=== PATIENT | male | born 1980 | race Hispanic/Latino ===

== ENCOUNTER 2018-01-10 18:22 | Inpatient (IN) | payer OTHER ==
[~2018-01-10] VITALS: Ht 175.3 cm; Wt 88.5 kg
[2018-01-10 20:22] LABS: BASOPHILS % (AUTO) 0.7 % (0.0-5.0); EOSINOPHILS % (AUTO) 2.9 % (0.0-8.0); HEMATOCRIT 30.8 % (42-54); LYMPHOCYTES % (AUTO) 19.6 % (21.0-51.0); MEAN CORPUSCULAR HEMOGLOBIN 21.3 pg (27.0-33.0); MEAN CORPUSCULAR HGB CONC 32.7 g/dL (32.0-36.0); MEAN CORPUSCULAR VOLUME 65.2 fL (79-99); MONOCYTES % (AUTO) 7.9 % (3.0-13.0); NEUTROPHILS % (AUTO) 68.9 % (40.0-77.0); NUCLEATED RED BLOOD CELLS 0.1 % (0.0-0.19); PLATELET COUNT (AUTO) 395 K/uL (130-400); RED BLOOD CELL COUNT(AUTO) 4.73 MIL/uL (4.50-6.20); RED CELL DISTRIBUTION WIDTH 15.9 % (11.0-15.5)
[2018-01-10] MEDS ORDERED: KETOROLAC TROMETHAMINE 30MG/ML ONE (20:25)
[2018-01-10 20:32] LABS: POTASSIUM 3.7 mmol/L (3.5-5.1)
[2018-01-10 20:36] LABS: ALBUMIN 2.7 g/dL (3.5-5.0); BILIRUBIN,TOTAL 0.2 mg/dL (0.2-1.0); TOTAL PROTEIN, SERUM 8.1 g/dL (6.0-8.3)
[2018-01-10] MEDS ORDERED: ONDANSETRON HCL MDV 20ML 2 MG/ML VIAL IVP PRN (22:00)
[2018-01-10] MEDS ORDERED: MEROPENEM 500MG+NS 50ML 50 ML IV SCH (22:00)
[2018-01-10] MEDS: VANCOMYCIN 1GM+NS 250ML 250 ML IV SCH (22:00)
[2018-01-10] MEDS: FAMOTIDINE 20MG TAB 20 MG TAB PO SCH (22:00)
[2018-01-10] MEDS ORDERED: ACETAMINOPHEN 325 MG TAB PO PRN (22:00)
[2018-01-10] MEDS ORDERED: MORPHINE SULFATE 2 MG/ML 1ML SYG IM PRN (22:00)
[2018-01-11] MEDS ORDERED: ENOXAPARIN SODIUM 40 MG/0.4 ML SYRINGE SQ ONE (03:14)
[2018-01-11 07:00] LABS: BASOPHILS % (AUTO) 0.8 % (0.0-5.0); EOSINOPHILS % (AUTO) 3.2 % (0.0-8.0); HEMATOCRIT 29.7 % (42-54); MEAN CORPUSCULAR HEMOGLOBIN 20.7 pg (27.0-33.0); MEAN CORPUSCULAR HGB CONC 32.2 g/dL (32.0-36.0); MEAN CORPUSCULAR VOLUME 64.3 fL (79-99); MONOCYTES % (AUTO) 7.4 % (3.0-13.0); NEUTROPHILS % (AUTO) 70.6 % (40.0-77.0); PLATELET COUNT (AUTO) 430 K/uL (130-400); RED BLOOD CELL COUNT(AUTO) 4.61 MIL/uL (4.50-6.20); RED CELL DISTRIBUTION WIDTH 16.1 % (11.0-15.5)
[2018-01-11 07:11] LABS: CREATININE 1.1 mg/dL (0.5-1.5)
[2018-01-11 07:18] LABS: ALBUMIN 2.6 g/dL (3.5-5.0); BILIRUBIN,TOTAL 0.3 mg/dL (0.2-1.0); TOTAL PROTEIN, SERUM 7.8 g/dL (6.0-8.3)
[2018-01-11 07:45] LABS: HEMOGLOBIN A1C 5.7 % (4.0-6.0)
[2018-01-11 08:11] LABS: ERYTHROCYTE SEDIMENTATION RATE 38 MM/HR (0-15)
[2018-01-11] MEDS ORDERED: BUPR300T53 PO (09:17)
[2018-01-11 09:48] VITALS: BP 105/64
[2018-01-11 11:00] VITALS: BP 97/62
[2018-01-11] MEDS: MULTIVITAMIN TABLET PO SCH (12:09)
[2018-01-11] MEDS: ENOXAPARIN SODIUM 40 MG/0.4 ML SYRINGE SQ SCH (12:12)
[2018-01-11] MEDS: MEROPENEM 500 MG VIAL IVP SCH ×2 (14:00→22:00)
[2018-01-11] MEDS: HONEY 1 APPL/ML TUBE TP SCH (14:30)
[2018-01-11 16:00] VITALS: BP 99/60
[2018-01-11 20:16] VITALS: BP 113/68
[2018-01-11] MEDS: LEVOFLOXACIN 750 MG TABLET PO SCH (20:29)
[2018-01-11] MEDS: CLINDAMYCIN HCL 150 MG CAP PO SCH (20:29)
[2018-01-11] MEDS: VANCOMYCIN 1GM+NS 250ML 250 ML IV SCH (22:00)
[2018-01-11] MEDS: FAMOTIDINE 20MG TAB 20 MG TAB PO SCH (22:21)
[2018-01-11 23:46] VITALS: BP 121/70
[2018-01-12 03:00] VITALS: BP 105/64
[2018-01-12] MEDS: CLINDAMYCIN HCL 150 MG CAP PO SCH ×2 (03:02→10:03)
[2018-01-12 05:51] LABS: INR 1.08 (0.85-1.15); PARTIAL THROMBOPLASTIN TIME 29.7 SEC (26.3-35.5); PROTHROMBIN TIME 11.1 SEC (9.6-11.6)
[2018-01-12 05:55] LABS: CREATININE 1.1 mg/dL (0.5-1.5); POTASSIUM 4.1 mmol/L (3.5-5.1)
[2018-01-12] MEDS: MEROPENEM 500 MG VIAL IVP SCH ×2 (06:00→13:56)
[2018-01-12 06:02] LABS: % IRON SATURATION 7.7 % (30-44)
[2018-01-12] MEDS: HONEY 1 APPL/ML TUBE TP SCH (09:00)
[2018-01-12 09:06] VITALS: BP 101/59
[2018-01-12] MEDS: MULTIVITAMIN TABLET PO SCH (10:03)
[2018-01-12] MEDS: LEVOFLOXACIN 750 MG TABLET PO SCH (10:03)
[2018-01-12] MEDS: ENOXAPARIN SODIUM 40 MG/0.4 ML SYRINGE SQ SCH (10:04)
[2018-01-12] MEDS ORDERED: HONEY 1 APPL/ML TUBE TP SCH (12:49)
[2018-01-12] MEDS ORDERED: FERROUS SULFATE 300 MG/5 ML LIQ UDCUP PO SCH (13:00)
== END 2018-01-12 15:39 | disposition left against medical advice (07) | DRG 593 ==
LOC: EDH 18:22 → EDHIP 21:11 → 4BH 01-11 08:25
PROVIDERS: ADMIT Family Medicine; ATTEND Family Medicine
DX: L97.919 Non-pressure chronic ulcer of unspecified part of right lower leg with unspecified severity (principal); L03.90 Cellulitis, unspecified; D50.9 Iron deficiency anemia, unspecified; L97.929 Non-pressure chronic ulcer of unspecified part of left lower leg with unspecified severity; D63.8 Anemia in other chronic diseases classified elsewhere; F31.9 Bipolar disorder, unspecified; F41.9 Anxiety disorder, unspecified; Z72.0 Tobacco use; Z83.3 Family history of diabetes mellitus
CPT/HCPCS: 36415; 80048; 80053; 83036; 83540; 83550; 84134; 85025; 85610; 85651; 85730; 87040; 87070; 87076; 87077; 87186; 93925; 93970; A4218; J1650; J1885; J2185

== ENCOUNTER 2018-01-12 23:53 | Inpatient (IN) | payer OTHER ==
[~2018-01-12] VITALS: Ht 175.3 cm; Wt 82.1 kg
[~2018-01-12 23:53] MED LIST: BUPR300T53 PO
[2018-01-13 00:25] LABS: APPEARANCE,URINE Clear (CLEAR); BILIRUBIN,URINE Negative (NEGATIVE); COLOR,URINE Dark Yellow (YELLOW); GLUCOSE, URINE (UA) Negative (NEGATIVE); KETONES,URINE Negative (NEGATIVE); LEUKOCYTE ESTERASE ,URINE Negative (NEGATIVE); NITRATE,URINE Negative (NEGATIVE); OCCULT BLOOD,URINE Small (NEGATIVE); PROTEIN,URINE Trace (NEGATIVE)
[2018-01-13 00:39] LABS: BACTERIA,URINE None Seen /HPF (None Seen); MUCUS,URINE Moderate LPF (None Seen); RBC,URINE 0-1 /HPF (0-1); SQUAMOUS EPITHELIAL CELL,UR Rare /HPF (0-2); WBC,URINE None Seen /HPF (0-1)
[2018-01-13] MEDS ORDERED: VANCOMYCIN 1GM+NS 250ML 500 ML IV ONE (00:50)
[2018-01-13] MEDS ORDERED: ZOSYN 3.375GM+NS 50ML 50 ML IV ONE ×3 (00:50→17:48)
[2018-01-13 01:11] LABS: BASOPHILS % (AUTO) 0.4 % (0.0-5.0); EOSINOPHILS % (AUTO) 0.6 % (0.0-8.0); HEMATOCRIT 28.7 % (42-54); LYMPHOCYTES % (AUTO) 13.9 % (21.0-51.0); MEAN CORPUSCULAR HEMOGLOBIN 20.9 pg (27.0-33.0); MEAN CORPUSCULAR HGB CONC 32.6 g/dL (32.0-36.0); MONOCYTES % (AUTO) 5.5 % (3.0-13.0); NEUTROPHILS % (AUTO) 79.6 % (40.0-77.0); PLATELET COUNT (AUTO) 384 K/uL (130-400); RED BLOOD CELL COUNT(AUTO) 4.49 MIL/uL (4.50-6.20); RED CELL DISTRIBUTION WIDTH 15.9 % (11.0-15.5); WHITE BLOOD COUNT (AUTO) 10.8 K/uL (4.8-10.8)
[2018-01-13 01:19] LABS: CARBON DIOXIDE 28 mmol/L (21-32); CHLORIDE 101 mmol/L (101-111); CREATININE 1.2 mg/dL (0.5-1.5); GLOMERULAR FILTR. RATE CALC 73 mL/min (>60); GLUCOSE,RANDOM 116 mg/dL (70-105); POTASSIUM 3.2 mmol/L (3.5-5.1); SODIUM SERUM 138 mmol/L (136-145); UREA NITROGEN, BLOOD 12 mg/dL (7-18)
[2018-01-13 01:24] LABS: INR 1.1 (0.85-1.15); PROTHROMBIN TIME 11.3 SEC (9.6-11.6)
[2018-01-13 01:38] LABS: ALANINE AMINOTRANSFERASE 10 U/L (12-78); ALBUMIN 2.7 g/dL (3.5-5.0); ASPARTATE AMINOTRANSFERASE 12 U/L (10-37); BILIRUBIN,TOTAL 0.2 mg/dL (0.2-1.0); CREATINE KINASE MB < 0.5 ng/mL (0.5-3.6); CREATINE KINASE, TOTAL 35 U/L (21-232); MYOGLOBIN 29 ng/mL (10-92); TROPONIN I < 0.04 ng/mL (0.00-0.06)
[2018-01-13] MEDS: FAMOTIDINE 20MG TAB 20 MG TAB PO SCH (02:45)
[2018-01-13] MEDS: HONEY 1 APPL/ML TUBE TP SCH (03:00)
[2018-01-13] MEDS ORDERED: FERROUS SULFATE 325 MG TABLET.DR PO SCH (09:00)
[2018-01-13] MEDS: ENOXAPARIN SODIUM 40 MG/0.4 ML SYRINGE SQ SCH (09:00)
[2018-01-13] MEDS: MULTIVITAMIN TABLET PO SCH (09:00)
[2018-01-13] MEDS ORDERED: ENOXAPARIN SODIUM 40 MG/0.4 ML SYRINGE SQ ONE (09:05)
[2018-01-13] MEDS ORDERED: FAMOTIDINE 20MG TAB 20 MG TAB ONE (09:06)
[2018-01-13] MEDS ORDERED: POTASSIUM CHLORIDE 20 MEQ ERTAB PO PRN (09:30)
[2018-01-13] MEDS ORDERED: POTASSIUM CHLORIDE 20MEQ/100ML 100 ML IV PRN (09:30)
[2018-01-13] MEDS ORDERED: POTASSIUM CHLORIDE 10% ELIXIR 20 MEQ/15 ML UDCUP PO PRN (09:30)
[2018-01-13] MEDS ORDERED: LIDOCAINE HCL-MPF 1% 2ML VIAL IVP PRN (09:30)
[2018-01-13] MEDS: ZOSYN 3.375GM+NS 50ML 50 ML IV SCH ×3 (16:00→23:58)
[2018-01-13] MEDS: SODIUM CHLORIDE 0.9% 1000ML 1,000 ML IV SCH ×2 (16:05→20:14)
[2018-01-13] MEDS ORDERED: ONDANSETRON HCL MDV 20ML 2 MG/ML VIAL IVP PRN (19:30)
[2018-01-13] MEDS ORDERED: ONDANSETRON HCL 4 MG/2 ML VIAL IVP PRN (19:30)
[2018-01-13] MEDS ORDERED: ACETAMINOPHEN 325 MG TAB PO PRN (19:30)
[2018-01-13 20:00] VITALS: BP 108/66
[2018-01-13] MEDS: FERROUS SULFATE 325 MG TABLET.DR PO SCH (20:13)
[2018-01-13] MEDS ORDERED: MORPHINE SULFATE 4 MG/1ML SYG ONE (20:53)
[2018-01-13] MEDS: HEPARIN SODIUM 5000UNIT/ML 1ML VIAL SQ SCH (21:49)
[2018-01-14] VITALS (8 sets, daily range): BP systolic 100–152; BP diastolic 51–104
[2018-01-14] MEDS: SODIUM CHLORIDE 0.9% 1000ML 1,000 ML IV SCH ×4 (00:30→17:21)
[2018-01-14] MEDS ORDERED: ACETAMINOPHEN 325 MG TAB PO PRN (00:30)
[2018-01-14] MEDS ORDERED: ONDANSETRON HCL MDV 20ML 2 MG/ML VIAL IVP PRN (00:30)
[2018-01-14] MEDS: VANCOMYCIN 1GM+NS 250ML 250 ML IV SCH (01:53)
[2018-01-14] MEDS: FAMOTIDINE 20MG TAB 20 MG TAB PO SCH (01:54)
[2018-01-14] MEDS: HONEY 1 APPL/ML TUBE TP SCH (01:54)
[2018-01-14] MEDS: HEPARIN SODIUM 5000UNIT/ML 1ML VIAL SQ SCH ×2 (04:13→11:56)
[2018-01-14 04:53] LABS: HEMATOCRIT 25.6 % (42-54); MEAN CORPUSCULAR HEMOGLOBIN 21.5 pg (27.0-33.0); MEAN CORPUSCULAR HGB CONC 33.4 g/dL (32.0-36.0); MEAN CORPUSCULAR VOLUME 64.3 fL (79-99); PLATELET COUNT (AUTO) 355 K/uL (130-400); RED BLOOD CELL COUNT(AUTO) 3.98 MIL/uL (4.50-6.20); RED CELL DISTRIBUTION WIDTH 15.6 % (11.0-15.5); WHITE BLOOD COUNT (AUTO) 9.5 K/uL (4.8-10.8)
[2018-01-14 05:04] LABS: CREATININE 1.1 mg/dL (0.5-1.5); MAGNESIUM 2.1 mg/dL (1.80-2.40); POTASSIUM 3.9 mmol/L (3.5-5.1)
[2018-01-14] MEDS: ZOSYN 3.375GM+NS 50ML 50 ML IV SCH ×2 (08:26→15:41)
[2018-01-14] MEDS: MULTIVITAMIN TABLET PO SCH (08:27)
[2018-01-14] MEDS: ENOXAPARIN SODIUM 40 MG/0.4 ML SYRINGE SQ SCH ×2 (08:27→08:45)
[2018-01-14] MEDS: FERROUS SULFATE 325 MG TABLET.DR PO SCH ×2 (08:27→20:11)
[2018-01-14] MEDS: METHYLPREDNISOLONE SOD SUCC 125MG/2ML VIAL IVP SCH ×2 (15:41→22:07)
[2018-01-15] MEDS: VANCOMYCIN 1GM+NS 250ML 250 ML IV SCH (02:45)
[2018-01-15] MEDS: SODIUM CHLORIDE 0.9% 1000ML 1,000 ML IV SCH ×2 (03:10→08:05)
[2018-01-15 03:51] VITALS: BP 103/57
[2018-01-15 04:39] LABS: HEMATOCRIT 28.6 % (42-54); MEAN CORPUSCULAR HEMOGLOBIN 21.4 pg (27.0-33.0); MEAN CORPUSCULAR HGB CONC 33.4 g/dL (32.0-36.0); PLATELET COUNT (AUTO) 342 K/uL (130-400); RED BLOOD CELL COUNT(AUTO) 4.48 MIL/uL (4.50-6.20); WHITE BLOOD COUNT (AUTO) 8.4 K/uL (4.8-10.8)
[2018-01-15 04:57] LABS: CREATININE 0.8 mg/dL (0.5-1.5); POTASSIUM 3.8 mmol/L (3.5-5.1)
[2018-01-15] MEDS: METHYLPREDNISOLONE SOD SUCC 125MG/2ML VIAL IVP SCH ×2 (06:07→14:31)
[2018-01-15] MEDS ORDERED: MORPHINE SULFATE 4 MG/1ML SYG ONE ×3 (06:08→14:21)
[2018-01-15] MEDS: MORPHINE SULFATE 2 MG/ML 1ML SYG IM PRN ×2 (06:11→10:28)
[2018-01-15 08:12] VITALS: BP 98/62
[2018-01-15] MEDS: FAMOTIDINE 20MG TAB 20 MG TAB PO SCH (10:14)
[2018-01-15] MEDS: ZOSYN 3.375GM+NS 50ML 50 ML IV SCH ×2 (10:14)
[2018-01-15] MEDS: FERROUS SULFATE 325 MG TABLET.DR PO SCH (10:14)
[2018-01-15] MEDS: MULTIVITAMIN TABLET PO SCH (10:14)
[2018-01-15 11:45] VITALS: BP 125/65
== END 2018-01-15 17:45 | disposition left against medical advice (07) | DRG 603 ==
LOC: EDH 23:53 → EDHIP 01-13 01:50 → 3CH 01-13 19:16
PROVIDERS: ADMIT Internal Medicine Nephrology; ATTEND Internal Medicine Nephrology
PROC: 02HV33Z Insertion of Infusion Device into Superior Vena Cava, Percutaneous Approach (ICD-10-PCS; principal; 2018-01-14)
DX: L03.115 Cellulitis of right lower limb (principal); L97.919 Non-pressure chronic ulcer of unspecified part of right lower leg with unspecified severity; D50.9 Iron deficiency anemia, unspecified; F17.210 Nicotine dependence, cigarettes, uncomplicated; B96.5 Pseudomonas (aeruginosa) (mallei) (pseudomallei) as the cause of diseases classified elsewhere; F31.9 Bipolar disorder, unspecified; L97.929 Non-pressure chronic ulcer of unspecified part of left lower leg with unspecified severity; L03.116 Cellulitis of left lower limb; B95.8 Unspecified staphylococcus as the cause of diseases classified elsewhere; R00.0 Tachycardia, unspecified; Z91.19 Patient's noncompliance with other medical treatment and regimen
CPT/HCPCS: 36415; 71045; 80048; 80053; 81001; 82550; 82553; 83605; 83735; 83874; 84484; 85025; 85027; 85610; 85730; 87040; 87088; 93005; C1894; J1644; J1650; J2270; J2543; J2930; J3370; J7030

== ENCOUNTER 2018-01-15 23:10 | Inpatient (IN) | payer OTHER ==
[~2018-01-15] VITALS: Ht 175.3 cm; Wt 83.9 kg
[2018-01-16 00:48] LABS: BASOPHILS % (AUTO) 0.1 % (0.0-5.0); HEMATOCRIT 28.8 % (42-54); LYMPHOCYTES % (AUTO) 4.9 % (21.0-51.0); MEAN CORPUSCULAR HEMOGLOBIN 20.6 pg (27.0-33.0); MEAN CORPUSCULAR HGB CONC 31.9 g/dL (32.0-36.0); MEAN CORPUSCULAR VOLUME 64.7 fL (79-99); MONOCYTES % (AUTO) 3.8 % (3.0-13.0); NEUTROPHILS % (AUTO) 91.2 % (40.0-77.0); PLATELET COUNT (AUTO) 408 K/uL (130-400); RED BLOOD CELL COUNT(AUTO) 4.45 MIL/uL (4.50-6.20); RED CELL DISTRIBUTION WIDTH 15.6 % (11.0-15.5); WHITE BLOOD COUNT (AUTO) 22.2 K/uL (4.8-10.8)
[2018-01-16 01:03] LABS: POTASSIUM 3.2 mmol/L (3.5-5.1)
[2018-01-16 01:08] LABS: ALBUMIN 2.9 g/dL (3.5-5.0); BILIRUBIN,TOTAL 0.2 mg/dL (0.2-1.0); TOTAL PROTEIN, SERUM 8.3 g/dL (6.0-8.3)
[2018-01-16 01:13] LABS: INR 1.05 (0.85-1.15); PARTIAL THROMBOPLASTIN TIME 26.1 SEC (26.3-35.5)
[2018-01-16] MEDS ORDERED: CEFTRIAXONE SODIUM 2 GM VIAL ONE (02:15)
[2018-01-16] MEDS ORDERED: ZOSYN 3.375GM+NS 50ML 50 ML IV ONE ×2 (04:45→04:47)
[2018-01-16] MEDS ORDERED: METHYLPREDNISOLONE SOD SUCC 125MG/2ML VIAL ONE (04:45)
[2018-01-16] MEDS ORDERED: MORPHINE SULFATE 4 MG/1ML SYG ONE (04:46)
[2018-01-16 06:32] LABS: BASOPHILS % (AUTO) 0.4 % (0.0-5.0); HEMATOCRIT 26.2 % (42-54); LYMPHOCYTES % (AUTO) 6.6 % (21.0-51.0); MEAN CORPUSCULAR HGB CONC 30.9 g/dL (32.0-36.0); MEAN CORPUSCULAR VOLUME 64.5 fL (79-99); MONOCYTES % (AUTO) 2.6 % (3.0-13.0); NEUTROPHILS % (AUTO) 90.4 % (40.0-77.0); PLATELET COUNT (AUTO) 384 K/uL (130-400); RED BLOOD CELL COUNT(AUTO) 4.06 MIL/uL (4.50-6.20); RED CELL DISTRIBUTION WIDTH 15.8 % (11.0-15.5); WHITE BLOOD COUNT (AUTO) 17.5 K/uL (4.8-10.8)
[2018-01-16 06:46] LABS: POTASSIUM 3.7 mmol/L (3.5-5.1)
[2018-01-16] MEDS ORDERED: VANCOMYCIN 1GM+NS 250ML 250 ML IV ONE (08:07)
[2018-01-16] MEDS ORDERED: WELLBUTRIN 300 MG PO SCH (09:00)
[2018-01-16] MEDS: BUPROPION HCL 150 MG TABLET.SA PO SCH (09:32)
[2018-01-16 11:45] VITALS: BP 131/79
[2018-01-16 12:31] LABS: AMPHET/METH SCREEN,URINE NEGATIVE (NEGATIVE); BARBITURATE SCREEN, URINE NEGATIVE (NEGATIVE); BENZODIAZEPINES SCREEN,URINE NEGATIVE (NEGATIVE); CANNABINOID SCREEN,URINE NEGATIVE (NEGATIVE); COCAINE SCREEN,URINE NEGATIVE (NEGATIVE); OPIATE SCREEN,URINE POSITIVE (NEGATIVE); PHENCYCLIDINE SCREEN,URINE NEGATIVE (NEGATIVE)
[2018-01-16] MEDS ORDERED: GLUCAGON 1MG KIT 1 MG ML IM PRN (15:30)
[2018-01-16] MEDS ORDERED: DEXTROSE 50%-WATER 50 ML DISP.SYRIN IV PRN (15:30)
[2018-01-16] MEDS ORDERED: ONDANSETRON HCL MDV 20ML 2 MG/ML VIAL IVP PRN (15:30)
[2018-01-16] MEDS ORDERED: ACETAMINOPHEN 325 MG TAB PO PRN (15:30)
[2018-01-16] MEDS: INSULIN R PO SS1 SQ SCH ×2 (16:30→21:00)
[2018-01-16 16:46] VITALS: BP 115/63
[2018-01-16] MEDS: METHYLPREDNISOLONE SOD SUCC 125MG/2ML VIAL IVP SCH (16:58)
[2018-01-16] MEDS: ZOSYN 3.375GM+NS 50ML 50 ML IV SCH (16:59)
[2018-01-16] MEDS: SODIUM CHLORIDE 0.9% 1000ML 1,000 ML IV SCH (16:59)
[2018-01-16] MEDS: MORPHINE SULFATE 4 MG/1ML SYG IVP PRN (16:59)
[2018-01-16 19:30] VITALS: BP 122/69
[2018-01-16] MEDS ORDERED: VANCOMYCIN PROTOCOL PER PHARMACY IV SCH (20:45)
[2018-01-16] MEDS: HONEY 1 APPL/ML TUBE TP SCH (21:00)
[2018-01-16] MEDS ORDERED: COMPOUND IV REFRIGERATED 1 EACH IVSOLN MISC PRN (21:00)
[2018-01-16] MEDS ORDERED: VANCOMYCIN 2 GM in SODIUM CHLORIDE 0.9% 500ML 500 ML IV ONE (21:00)
[2018-01-16] MEDS: HEPARIN SODIUM 5000UNIT/ML 1ML VIAL SQ SCH (21:25)
[2018-01-16 23:20] VITALS: BP 112/48
[2018-01-17] MEDS: ZOSYN 3.375GM+NS 50ML 50 ML IV SCH ×4 (01:12→23:33)
[2018-01-17] MEDS: METHYLPREDNISOLONE SOD SUCC 125MG/2ML VIAL IVP SCH ×4 (01:13→23:33)
[2018-01-17 03:45] VITALS: BP 102/52
[2018-01-17] MEDS: INSULIN R PO SS1 SQ SCH ×4 (06:43→20:52)
[2018-01-17] MEDS: VANCOMYCIN 1GM+NS 250ML 250 ML IV SCH ×3 (07:15→20:50)
[2018-01-17] MEDS: MORPHINE SULFATE 4 MG/1ML SYG IVP PRN ×3 (07:16→23:10)
[2018-01-17 08:14] VITALS: BP 101/61
[2018-01-17] MEDS: BUPROPION HCL 150 MG TABLET.SA PO SCH (08:48)
[2018-01-17] MEDS: SODIUM CHLORIDE 0.9% 1000ML 1,000 ML IV SCH ×2 (08:51→17:27)
[2018-01-17] MEDS: HEPARIN SODIUM 5000UNIT/ML 1ML VIAL SQ SCH ×3 (09:04→20:47)
[2018-01-17 12:06] VITALS: BP 110/53
[2018-01-17 17:00] VITALS: BP 129/75
[2018-01-17 19:30] VITALS: BP 147/77
[2018-01-17] MEDS: HONEY 1 APPL/ML TUBE TP SCH (20:50)
[2018-01-17 23:35] VITALS: BP 104/52
[2018-01-18 03:30] VITALS: BP 105/52
[2018-01-18] MEDS: INSULIN R PO SS1 SQ SCH ×4 (06:57→21:00)
[2018-01-18] MEDS ORDERED: COMPOUND IV REFRIGERATED 1 EACH IVSOLN MISC PRN (07:30)
[2018-01-18] MEDS: VANCOMYCIN 1.5 GM in SODIUM CHLORIDE 0.9% 250 ML IV SCH ×3 (07:35→22:14)
[2018-01-18 08:00] VITALS: BP 115/57
[2018-01-18] MEDS: METHYLPREDNISOLONE SOD SUCC 125MG/2ML VIAL IVP SCH ×2 (08:33→18:07)
[2018-01-18] MEDS: BUPROPION HCL 150 MG TABLET.SA PO SCH (08:34)
[2018-01-18] MEDS: ZOSYN 3.375GM+NS 50ML 50 ML IV SCH ×2 (08:34→18:07)
[2018-01-18] MEDS: SODIUM CHLORIDE 0.9% 1000ML 1,000 ML IV SCH (08:34)
[2018-01-18] MEDS: MORPHINE SULFATE 4 MG/1ML SYG IVP PRN ×2 (08:37→22:23)
[2018-01-18] MEDS: HEPARIN SODIUM 5000UNIT/ML 1ML VIAL SQ SCH ×3 (08:50→22:22)
[2018-01-18 11:30] VITALS: BP 124/71
[2018-01-18 15:55] VITALS: BP 126/66
[2018-01-18 19:30] VITALS: BP 130/55
[2018-01-18] MEDS: HONEY 1 APPL/ML TUBE TP SCH (21:11)
[2018-01-18 23:20] VITALS: BP 124/77
[2018-01-19] MEDS: METHYLPREDNISOLONE SOD SUCC 125MG/2ML VIAL IVP SCH (01:42)
[2018-01-19] MEDS: ZOSYN 3.375GM+NS 50ML 50 ML IV SCH (01:42)
[2018-01-19 03:30] VITALS: BP 115/57
[2018-01-19] MEDS: MORPHINE SULFATE 4 MG/1ML SYG IVP PRN (05:00)
[2018-01-19 05:30] LABS: HEMATOCRIT 27.8 % (42-54); MEAN CORPUSCULAR HEMOGLOBIN 20.5 pg (27.0-33.0); MEAN CORPUSCULAR HGB CONC 31.7 g/dL (32.0-36.0); MEAN CORPUSCULAR VOLUME 64.8 fL (79-99); PLATELET COUNT (AUTO) 364 K/uL (130-400); RED CELL DISTRIBUTION WIDTH 16.5 % (11.0-15.5); WHITE BLOOD COUNT (AUTO) 16.4 K/uL (4.8-10.8)
[2018-01-19 05:43] LABS: ALBUMIN 2.3 g/dL (3.5-5.0); BILIRUBIN,TOTAL 0.2 mg/dL (0.2-1.0); CREATININE 0.9 mg/dL (0.5-1.5); POTASSIUM 3.4 mmol/L (3.5-5.1); TOTAL PROTEIN, SERUM 6.4 g/dL (6.0-8.3)
[2018-01-19] MEDS: INSULIN R PO SS1 SQ SCH (06:57)
[2018-01-19] MEDS ORDERED: POTASSIUM CHLORIDE 20MEQ/100ML 100 ML IV PRN (07:15)
[2018-01-19] MEDS ORDERED: LIDOCAINE HCL-MPF 1% 2ML VIAL IVP PRN (07:15)
[2018-01-19] MEDS ORDERED: POTASSIUM CHLORIDE 10% ELIXIR 20 MEQ/15 ML UDCUP PO PRN (07:15)
[2018-01-19] MEDS ORDERED: POTASSIUM CHLORIDE 20 MEQ ERTAB PO PRN (07:15)
== END 2018-01-19 07:45 | disposition left against medical advice (07) | DRG 603 ==
LOC: EDH 23:10 → EDHIP 01-16 02:52 → OBSVTOIN 01-16 02:52 → 4CH 01-16 11:53
PROVIDERS: ADMIT Internal Medicine Nephrology; ATTEND Internal Medicine Nephrology
PROC: 02HV33Z Insertion of Infusion Device into Superior Vena Cava, Percutaneous Approach (ICD-10-PCS; principal; 2018-01-16)
DX: L03.115 Cellulitis of right lower limb (principal); L97.919 Non-pressure chronic ulcer of unspecified part of right lower leg with unspecified severity; L97.929 Non-pressure chronic ulcer of unspecified part of left lower leg with unspecified severity; L03.116 Cellulitis of left lower limb; F17.210 Nicotine dependence, cigarettes, uncomplicated; F31.9 Bipolar disorder, unspecified; Z53.21 Procedure and treatment not carried out due to patient leaving prior to being seen by health care provider
CPT/HCPCS: 36415; 71045; 80048; 80053; 80202; 80305; 82550; 82948; 83605; 85025; 85027; 85610; 85730; 87040; 87070; 87076; 87077; 87186; C1894; J0696; J1644; J2270; J2543; J2930; J3370; J7030; J7040

== ENCOUNTER → 2022-11-25 | Outpatient (CLI) | payer MEDICARE ==
[~2022-11-25] MED LIST changes: +LIDOCAINE HCL 4% LTA SOL 4 ML VIAL TP ONE
== END | disposition home or self-care (01) ==
LOC: WHH 14:16
PROVIDERS: ATTEND Family Medicine
DX: L97.812 Non-pressure chronic ulcer of other part of right lower leg with fat layer exposed (principal); L97.822 Non-pressure chronic ulcer of other part of left lower leg with fat layer exposed; I87.8 Other specified disorders of veins; I73.9 Peripheral vascular disease, unspecified; I10 Essential (primary) hypertension; F31.9 Bipolar disorder, unspecified; F17.290 Nicotine dependence, other tobacco product, uncomplicated; Z90.49 Acquired absence of other specified parts of digestive tract
CPT/HCPCS: 11042; A6248; A4450

== ENCOUNTER 2025-06-13 06:40 | Day surgery (SDC) | payer OTHER ==
[~2025-06-13] VITALS: Ht 180.3 cm; Wt 114.3 kg
[2025-06-13] VITALS (11 sets, daily range): BP systolic 103–128; BP diastolic 55–81; PULSE 75–87; RESP 13–18; TEMP 96.8–98.2
[~2025-06-13 06:40] MED LIST changes: +ALPR-412 PO; +AMLO2.5T4 PO; -LIDOCAINE HCL 4% LTA SOL 4 ML VIAL TP ONE; +LURA40TA2 PO; +VONO1COM PO
[2025-06-13] MEDS: 0.9%NACL 1000ML 1,000 ML IV ONE (07:11)
== END 2025-06-13 10:20 | disposition home or self-care (01) ==
LOC: DAH 06:40 → ENDO 06:40
PROVIDERS: ATTEND Internal Medicine Gastroenterology
DX: D50.0 Iron deficiency anemia secondary to blood loss (chronic) (principal); D12.0 Benign neoplasm of cecum; K21.00 Gastro-esophageal reflux disease with esophagitis, without bleeding; D50.9 Iron deficiency anemia, unspecified; R19.5 Other fecal abnormalities; K29.50 Unspecified chronic gastritis without bleeding; K44.9 Diaphragmatic hernia without obstruction or gangrene; F31.9 Bipolar disorder, unspecified; F41.9 Anxiety disorder, unspecified; E66.9 Obesity, unspecified; Z68.39 Body mass index [BMI] 39.0-39.9, adult
CPT/HCPCS: 43239; 45380; 45385; J7030; J2704; J2371; A4620; A4215; J3490

== ENCOUNTER → 2025-07-20 | Outpatient (CLI) | payer OTHER ==
--- NOTE | 2025-07-20 10:18 | HMCIMG ---
DOUBLE CONTRAST UPPER GI SERIES: Finding: The study was performed using provocative maneuvers After swallowing effervescent crystal and thick barium, there is no definite intrinsic or extrinsic lesion seen in the esophagus. There is moderate sized hiatal hernia with mild grade 1 esophageal reflux The stomach is normal in size, shape, and configuration. The rugal folds appear to be normal. The duodenal bulb, duodenal sweep, and upper jejunum appear to be normal. There are surgical clips in the right upper quadrant from prior cholecystectomy. Fluoroscopy time: 0.8 minutes seconds. IMPRESSION: Moderate to large hiatal hernia with grade 1 esophageal reflux Otherwise NORMAL DOUBLE CONTRAST UPPER GI SERIES.
== END | disposition home or self-care (01) ==
LOC: RAH 09:07
PROVIDERS: ATTEND Internal Medicine Gastroenterology
DX: K21.9 Gastro-esophageal reflux disease without esophagitis (principal); K44.9 Diaphragmatic hernia without obstruction or gangrene; Z90.49 Acquired absence of other specified parts of digestive tract
CPT/HCPCS: 74240